=== PATIENT | female | born 1985 | race African-American/Black ===

== ENCOUNTER 2017-02-04 10:08 | Emergency (ER) | payer OTHER ==
[~2017-02-04] VITALS: Ht 170.2 cm; Wt 68.0 kg
--- NOTE | 2017-02-04 10:33 | Emergency Room Report ---
History of Present Illness General Chief Complaint: Upper Respiratory Illness Source: Patient Present Illness HPI Patient presents with complaints of cough and bodyaches She reports that several months ago when she had similar symptoms she had pneumonia She also felt that when she had smoked marijuana she felt tighter and more burning in the chest area which was similar to last time she had pneumonia Denies any obvious fever she also had a sore throat Denies any neck pain or photophobia denies any back or flank pain Denies any dysuria frequency Allergies: Coded Allergies: No Known Allergies (Unverified , 02/04/17) Patient History Past Medical History: see triage record Pertinent Family History: none Last Menstrual Period: Two weeks ago Now: No Reviewed Nursing Documentation: PMH: Agreed, PSxH: Agreed Nursing Documentation-PMH Hx Asthma: Yes - Pneumonia five months ago Review of Systems All Other Systems: negative except mentioned in HPI Physical Exam Vital Signs Date Time Temp Pulse Resp B/P (MAP) Pulse Ox O2 Delivery O2 Flow Rate FiO2 02/04/17 10:11 97.7 83 16 110/71 97 Room Air Sp02 EP Interpretation: reviewed, normal General Appearance: well appearing, no apparent distress Head: normocephalic, atraumatic Eyes: bilateral eye PERRL, bilateral eye EOMI ENT: hearing grossly normal, normal pharynx, TMs + canals normal, uvula midline Neck: full range of motion, supple, no meningismus, no bony tend Respiratory: lungs clear, normal breath sounds, no rhonchi, no respiratory distress, no retraction, no accessory muscle use Cardiovascular #1: normal peripheral pulses, regular rate, rhythm, no edema, no gallop, no JVD, no murmur Gastrointestinal: normal bowel sounds, non tender, soft, no mass, no organomegaly, non-distended, no guarding, no hernia, no pulsatile mass, no rebound Genitourinary: no CVA tenderness Musculoskeletal: normal inspection Neurologic: oriented x3, responsive, roll slicing machine tender III-XII nml as tested, motor strength/ tone normal, sensory intact Psychiatric: mood/affect normal Skin: normal color, no rash, warm/dry, palpation normal Lymphatic: normal inspection, no adenopathy Medical Decision Making Diagnostic Impression: Primary Impression: Upper respiratory infection ER Course Multiple differentials including but not limited to influenza, pneumonia, bronchitis considered Patient chest x-ray is appropriate Patient has benign exam Hemodynamically also remaining stable at this time the patient will have initial conservative outpatient trial I did discuss with her regarding marijuana use as well any worsening of her symptoms Chest X-Ray Diagnostic Results Chest X-Ray Diagnostic Results : Chest X-Ray Ordered: Yes # of Views/Limited/Complete: 1 View Indication: Chest Pain EP Interpretation: Yes Interpretation: no consolidation, no effusion, no pneumothorax, no acute cardiopulmonary disease Impression: No acute disease Electronically Signed by: Mee Maldonado DO Last Vital Signs Date Time Temp Pulse Resp B/P (MAP) Pulse Ox O2 Delivery O2 Flow Rate FiO2 02/04/17 10:11 97.7 83 16 110/71 97 Room Air Status: improved Disposition: HOME, SELF-CARE Condition: Improved Scripts Guaifenesin/Dextromethorphan (ROBITUSSIN COUGH-CHEST DM LIQ) 237 Ml Liquid 5 ML PO QHS for 7 Days, #118 ML Prov: MEE MALDONADO D.O. 02/04/17 Albuterol Sulfate* (ALBUTEROL SULFATE MDI*) 8.5 Gm Hfa.aer.ad 2 PUFF INH Q6H, #1 EA 0 Refills Prov: MEE MALDONADO D.O. 02/04/17 Additional Instructions: Patient is provided with the discharge instructions notified to follow up with primary doctor in the next 2-3 days otherwise return to the er with any worsening symptoms. Please note that this report is being documented using [employer] technology. This can lead to erroneous entry secondary to incorrect interpretation by the dictating instrument. MEE MALDONADO D.O. Feb 04, 2017 10:33
[2017-02-04] MEDS ORDERED: ALBUTEROL SULF8.5 GM INH ×2 (11:00→11:02)
[2017-02-04] MEDS ORDERED: ROBITUSSIN COU237 M1 PO (11:02)
[2017-02-04 11:14] VITALS: BP 110/71
[2017-02-04 11:17] VITALS: BP 110/71
--- NOTE | 2017-02-04 11:21 | Diagnostic Imaging Report ---
Indication: SOB Technique: XRAY CHEST 1 V Comparison: None. Findings: The cardiomediastinal silhouette is normal. The lungs are clear. There is no evidence of pleural fluid. The bones are unremarkable. Impression: Normal chest.
== END 2017-02-04 11:19 | disposition home or self-care (01) ==
LOC: EMR 11:10
DX: J06.9 Acute upper respiratory infection, unspecified (principal); J45.909 Unspecified asthma, uncomplicated
CPT/HCPCS: 71010; 99283